=== PATIENT | female | born 1975 | race Asian ===

== ENCOUNTER 2017-02-09 00:44 | Emergency (ER) | payer MEDICAID ==
[~2017-02-09] VITALS: Ht 154.9 cm; Wt 55.3 kg
[2017-02-09] MEDS ORDERED: SYNTHROID25 MCG ORAL (00:58)
[2017-02-09] MEDS ORDERED: BUPROPION XL300 MG ORAL (00:58)
[2017-02-09] MEDS ORDERED: PLAQUENIL200 MG ORAL (00:58)
[2017-02-09 01:05] VITALS: BP 119/78
[2017-02-09] MEDS ORDERED: IBUPROFEN600 MG ORAL (01:39)
[2017-02-09 01:45] VITALS: BP 119/78
--- NOTE | 2017-02-09 02:41 | Emergency Room Report ---
History of Present Illness General Chief Complaint: Upper Extremity Injury Source: Patient Present Illness HPI 41-year-old female presenting with left hand pain. Patient states that she was moving things in the house, a glass bottle fell onto her hand. Only complaining of hand pain no other injuries no head trauma no LOC Allergies: Coded Allergies: ACETAMINOPHEN (Verified Allergy, Unknown, hives, 02/09/17) HYDROCODONE (Verified Allergy, Unknown, hives, 02/09/17) Patient History Past Medical History: see triage record Past Surgical History: none Pertinent Family History: none Last Menstrual Period: last week Now: No Reviewed Nursing Documentation: PMH: Agreed, PSxH: Agreed Nursing Documentation-PMH Past Medical History: No History, Except For History Of Psychiatric Problem: Yes - depression Review of Systems All Other Systems: negative except mentioned in HPI Physical Exam Vital Signs Date Time Temp Pulse Resp B/P (MAP) Pulse Ox O2 Delivery O2 Flow Rate FiO2 02/09/17 00:53 98.1 83 16 119/78 97 02/09/17 01:05 Room Air Sp02 EP Interpretation: reviewed, normal General Appearance: normal inspection, well appearing, no apparent distress, alert, GCS 15, non-toxic Head: normocephalic, atraumatic Eyes: bilateral eye normal inspection, bilateral eye PERRL, bilateral eye EOMI ENT: normal ENT inspection, normal pharynx, normal voice, moist mucus membranes Neck: normal inspection, full range of motion, supple Respiratory: normal inspection, lungs clear, normal breath sounds, no respiratory distress, no retraction, no wheezing, speaking full sentences, chest symmetrical Cardiovascular #1: normal inspection, regular rate, rhythm, no edema, normal capillary refill Cardiovascular #2: 2+ radial (R), 2+ radial (L) Gastrointestinal: normal inspection, non tender, soft, non-distended, no guarding Musculoskeletal: other - Dorsum of left hand with ecchymosis and edema, tender palpation second third and fourth metacarpal regions, full range of motion of fingers and wrist Neurologic: normal inspection, alert, oriented x3, responsive, motor strength/ tone normal, sensory intact, normal gait, speech normal Psychiatric: normal inspection, judgement/insight normal, memory normal Skin: normal inspection, normal color, no rash, warm/dry, well hydrated, normal turgor Medical Decision Making Diagnostic Impression: Primary Impression: Contusion of hand, left ER Course 41-year-old female with left hand pain DDX: Contusion vs. fracture Plan: Pain control with motrin XR ER course: Patient reports improvement of pain with motrin. XR reveals soft tissue swelling without fracture JM bandage applied. Disposition: Patient is to be discharged home with a prescription of motrin. Patient educated to rest, ice, and elevate extremity and to avoid vigorous activity. Strict precautions discussed with patient on when to return to the emergency room including increased redness or swelling joints, increased pain/swelling of extremity, fever or chills, which could indicate severe illness. Patient is to follow up with their primary care doctor within 5 days. Patient also instructed to follow up with an orthopedic doctor if continuing to have mild/moderate pain as he may need further outpatient imaging. Patient agrees with plan. Please note that this Emergency Department Report was dictated using [employer] recorder mechanic technology software, occasionally this can lead to erroneous entry secondary to interpretation by the dictation equipment. Xray ordered: Left hand 3 view Indication: Pain EP Interpretation: Yes Interpretation: No dislocation, +soft tissue swelling, no fractures Impression: No acute disease Electronically signed by Ignacio Cordero MD Last Vital Signs Date Time Temp Pulse Resp B/P (MAP) Pulse Ox O2 Delivery O2 Flow Rate FiO2 02/09/17 01:45 98.1 70 16 119/78 98 Room Air Disposition: HOME, SELF-CARE Condition: Improved Scripts Ibuprofen* (MOTRIN*) 600 Mg Tablet 600 MG ORAL Q8H Y for For Pain, #30 TAB 0 Refills Prov: Ignacio Cordero M.D. 02/09/17 Referrals: [facility],REFERRING (PCP) Patient Instructions: Contusion Ignacio Cordero M.D. Feb 09, 2017 02:41
--- NOTE | 2017-02-09 11:09 | Diagnostic Imaging Report ---
Indication: Trauma with pain Technique: HAND COMPLETE LT Comparison: None. Findings: The osseous structures are intact. There is no fracture or destruction. The visualized joints are normal. The soft tissues are unremarkable. Impression: Normal.
== END 2017-02-09 01:45 | disposition home or self-care (01) ==
LOC: EMR 01:20
DX: S60.222A Contusion of left hand, initial encounter (principal); W20.8XXA Other cause of strike by thrown, projected or falling object, initial encounter; Y92.9 Unspecified place or not applicable; Z88.6 Allergy status to analgesic agent; F32.9 Major depressive disorder, single episode, unspecified
CPT/HCPCS: 99283

== ENCOUNTER 2017-03-11 09:32 | Emergency (ER) | payer MEDICAID ==
[~2017-03-11] VITALS: Ht 154.9 cm; Wt 56.7 kg
[~2017-03-11 09:32] MED LIST: BUPROPION XL300 MG ORAL; IBUPROFEN600 MG ORAL; PLAQUENIL200 MG ORAL; SYNTHROID25 MCG ORAL
[2017-03-11 09:52] VITALS: BP 165/81
--- NOTE | 2017-03-11 10:23 | Emergency Room Report ---
History of Present Illness General Chief Complaint: Vomiting Source: Patient Present Illness HPI Patient is a 41-year-old female presented after increased generalized weakness, muscle aches as well as vomiting. Patient gradual onset of symptoms with the past few weeks. Patient prior history of lupus and arthritis. She had not been having any hematemesis. She reports having prominent symptoms of muscle tightness associated with difficulty sleeping. Patient had previously been on steroids and had worsening of symptoms as well as psychosis. Allergies: Coded Allergies: ACETAMINOPHEN (Verified Allergy, Unknown, hives, 02/09/17) HYDROCODONE (Verified Allergy, Unknown, hives, 02/09/17) Patient History Last Menstrual Period: 03-01 Now: No Reviewed Nursing Documentation: PMH: Agreed, PSxH: Agreed Nursing Documentation-PMH Past Medical History: No History, Except For Review of Systems All Other Systems: negative except mentioned in HPI Physical Exam Vital Signs Date Time Temp Pulse Resp B/P (MAP) Pulse Ox O2 Delivery O2 Flow Rate FiO2 03/11/17 09:42 97.9 83 18 167/84 98 Room Air Sp02 EP Interpretation: reviewed, normal General Appearance: normal inspection, well appearing, no apparent distress, alert, GCS 15, Chronically Ill Head: atraumatic ENT: normal ENT inspection, hearing grossly normal, normal voice Neck: normal inspection, full range of motion, supple, no bony tend Respiratory: normal inspection, lungs clear, normal breath sounds, no respiratory distress, no retraction, no wheezing Cardiovascular #1: regular rate, rhythm, no edema Gastrointestinal: normal inspection, normal bowel sounds, non tender, soft, no guarding, no hernia Genitourinary: no CVA tenderness Musculoskeletal: normal inspection, back normal, normal range of motion Neurologic: normal inspection, alert, oriented x3, responsive, 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 Differential diagnosis included was not limited to anemia, urinary tract infection, electrolyte abnormality, hypothyroidism, myocardial infarction, myasthenia gravis, dehydration, among others. Because of complexity of patient's case laboratory testing and imaging studies were ordered.Laboratory studies were unremarkable except for the white blood count is slightly decreased. The patient was advised followup with her primary care physician for reexamination and I recheck her white blood count. The patient was given IV fluids. The patient was given Haldol improvement in her nausea and vomiting. The patient stated she felt better. Labs Test 03/11/17 10:00 03/11/17 10:30 White Blood Count 4.1 K/UL (4.8-10.8) Red Blood Count 4.98 M/UL (4.20-5.40) Hemoglobin 14.9 G/DL (12.0-16.0) Hematocrit 46.4 % (37.0-47.0) Mean Corpuscular Volume 93 FL (80-99) Mean Corpuscular Hemoglobin 29.9 PG (27.0-31.0) Mean Corpuscular Hemoglobin Concent 32.1 G/DL (32.0-36.0) Red Cell Distribution Width 10.6 % (11.6-14.8) Platelet Count 299 K/UL (150-450) Mean Platelet Volume 6.3 FL (6.5-10.1) Neutrophils (%) (Auto) 56.6 % (45.0-75.0) Lymphocytes (%) (Auto) 33.0 % (20.0-45.0) Monocytes (%) (Auto) 8.9 % (1.0-10.0) Eosinophils (%) (Auto) 0.4 % (0.0-3.0) Basophils (%) (Auto) 1.2 % (0.0-2.0) Erythrocyte Sedimentation Rate 12 MM/HR (0-20) Sodium Level 139 MMOL/L (136-145) Potassium Level 3.6 MMOL/L (3.5-5.1) Chloride Level 103 MMOL/L (98-107) Carbon Dioxide Level 26 MMOL/L (21-32) Anion Gap 10 mmol/L (5-15) Blood Urea Nitrogen 5 mg/dL (7-18) Creatinine 0.9 MG/DL (0.55-1.30) Estimat Glomerular Filtration Rate > 60 mL/min (>60) Glucose Level 94 MG/DL (74-106) Calcium Level 9.3 MG/DL (8.5-10.1) Total Bilirubin 0.5 MG/DL (0.2-1.0) Aspartate Amino Transf (AST/SGOT) 16 U/L (15-37) Alanine Aminotransferase (ALT/SGPT) 17 U/L (12-78) Alkaline Phosphatase 64 U/L (46-116) Troponin I 0.000 ng/mL (0.000-0.056) Total Protein 9.1 G/DL (6.4-8.2) Albumin 4.8 G/DL (3.4-5.0) Globulin 4.3 g/dL Albumin/Globulin Ratio 1.1 (1.0-2.7) Thyroid Stimulating Hormone (TSH) 2.671 uiU/mL (0.358-3.740) Urine Color Pale yellow Urine Appearance Clear Urine pH 8 (4.5-8.0) Urine Specific [place] 1.015 (1.005-1.035) Urine Protein Negative (NEGATIVE) Urine Glucose (UA) Negative (NEGATIVE) Urine Ketones 2+ (NEGATIVE) Urine Occult Blood Negative (NEGATIVE) Urine Nitrite Negative (NEGATIVE) Urine Bilirubin Negative (NEGATIVE) Urine Urobilinogen Normal MG/DL (0.0-1.0) Urine Leukocyte Esterase Negative (NEGATIVE) Urine RBC 0-2 /HPF (0 - 2) Urine WBC 0-2 /HPF (0 - 2) Urine Squamous Epithelial Cells Occasional /LPF Urine Bacteria None /HPF (NONE) Urine HCG, Qualitative Negative EKG Diagnostic Results Rate: normal Rhythm: NSR ST Segments: no acute changes Last Vital Signs Date Time Temp Pulse Resp B/P (MAP) Pulse Ox O2 Delivery O2 Flow Rate FiO2 03/11/17 09:52 97.9 76 15 165/81 100 Room Air Status: improved Disposition: HOME, SELF-CARE Condition: Stable Referrals: [facility],REFERRING (PCP) Arik Waters Mar 11, 2017 10:23
[2017-03-11 10:30] LABS: BASOPHILS % (AUTO) 1.2 % (0.0-2.0); EOSINOPHILS % (AUTO) 0.4 % (0.0-3.0); MEAN CORPUSCULAR HEMOGLOBIN 29.9 PG (27.0-31.0); MEAN CORPUSCULAR HGB CONC 32.1 G/DL (32.0-36.0); MEAN CORPUSCULAR VOLUME 93 FL (80-99); MEAN PLATELET VOLUME 6.3 FL (6.5-10.1); MONOCYTES % (AUTO) 8.9 % (1.0-10.0); NEUTROPHILS % (AUTO) 56.6 % (45.0-75.0); PLATELET COUNT 299 K/UL (150-450); RED BLOOD COUNT 4.98 M/UL (4.20-5.40); RED CELL DISTRIBUTION WIDTH 10.6 % (11.6-14.8); WHITE BLOOD COUNT 4.1 K/UL (4.8-10.8)
[2017-03-11] MEDS ORDERED: Haloperidol 5mg/ml Inj IM ONE (10:30)
[2017-03-11 10:36] LABS: ANION GAP 10 mmol/L (5-15); CALCIUM 9.3 MG/DL (8.5-10.1); CARBON DIOXIDE 26 MMOL/L (21-32); CHLORIDE 103 MMOL/L (98-107); CREATININE 0.9 MG/DL (0.55-1.30); GLOMERULAR FILTRATION RATE > 60 mL/min (>60); POTASSIUM 3.6 MMOL/L (3.5-5.1); SODIUM 139 MMOL/L (136-145)
[2017-03-11 10:36] LABS: APPEARANCE,URINE CLEAR; KETONES,URINE 2+ (NEGATIVE); LEUKOCYTE ESTERASE ,URINE NEGATIVE (NEGATIVE); NITRITE,URINE NEGATIVE (NEGATIVE); PH,URINE 8 (4.5-8.0); PROTEIN,URINE NEGATIVE (NEGATIVE); UROBILINOGEN,URINE NORMAL MG/DL (0.0-1.0)
[2017-03-11 10:49] LABS: ALANINE AMINOTRANSFERASE 17 U/L (12-78); ALBUMIN/GLOBULIN RATIO 1.1 (1.0-2.7); ASPARTATE AMINO TRANSFERASE 16 U/L (15-37); THYROID STIMULATING HORMONE 2.671 uiU/mL (0.358-3.740); TOTAL PROTEIN 9.1 G/DL (6.4-8.2)
[2017-03-11 10:51] LABS: RBC,URINE 0-2 /HPF (0 - 2); SQUAMOUS EPITHELIAL CELL,UR OCCASIONAL /LPF (NONE/OCC); WBC,URINE 0-2 /HPF (0 - 2)
[2017-03-11 11:53] VITALS: BP 127/88
== END 2017-03-11 13:05 | disposition home or self-care (01) ==
LOC: EMR 10:17
DX: R53.1 Weakness (principal); Z88.6 Allergy status to analgesic agent
CPT/HCPCS: 36415; 80053; 81001; 81025; 84443; 84484; 85025; 85651; 96372; 99284; J1630